=== PATIENT | male | born 1960 | race Caucasian/White ===

== ENCOUNTER 2017-03-21 18:08 | Emergency (ER) | payer BC ==
[2017-03-21 18:17] VITALS: BP 137/97
[2017-03-21] MEDS ORDERED: Tetan/Diph/Pertus SYR(Tdap)* 0.5 ML SYR(BOOSTRIX) use SYR IM ONE (18:37)
--- NOTE | 2017-03-21 20:10 | UC ---
Skin Complaint HPI - HPI Summary HPI Summary: Patient states he is here for a tetanus shot. Contaminated nail on a board fell directly atop his right foot occurred last night. He notes to some tenderness, but denies redness, swelling or drainage from the area. There is a small lesion present, but no other pain or findings. He is otherwise healthy. Last tetanus unknown. UTD on other immunizations. - History of Current Complaint Hx Obtained From: Patient Onset/Duration: Sudden Onset Skin Exposure Onset/Duration: Hours Ago Timing: Constant Onset Severity: Moderate Current Severity: Moderate Pain Intensity: 0 Pain Scale Used: 0-10 Numeric <Edel Loza - Last Filed: 03/21/17 20:06> <Estephanie Amor - Last Filed: 03/21/17 21:48> - History of Current Complaint Chief Complaint: UCWounds Time Seen by Provider: 03/21/17 19:13 Stated Complaint: NAIL IN FOOT - Allergy/Home Medications Allergies/Adverse Reactions: Allergies Allergy/AdvReac Type Severity Reaction Status Date / Time No Known Allergies Allergy Verified 01/30/16 08:57 Review of Systems Constitutional: Negative Skin: Other - lesion anterior right foot Respiratory: Negative Cardiovascular: Negative Motor: Negative Neurovascular: Negative Neurological: Negative Psychological: Negative Is Patient Immunocompromised?: No All Other Systems Reviewed And Are Negative: Yes <Edel Loza - Last Filed: 03/21/17 20:06> PMH/Surg Hx/FS Hx/Imm Hx Previously Healthy: Yes - Surgical History Surgical History: Yes Surgery Procedure, Year, and Place: Appendectomy @ 14 years old - Family History Known Family History: Positive: Other - no fhx arthritis Negative: Cardiac Disease, Hypertension, Diabetes - Social History Occupation: Employed Full-time Lives: With Family Alcohol Use: Daily Substance Use Type: None Smoking Status (MU): Never Smoked Tobacco - Immunization History Most Recent Influenza Vaccination: unknown <Edel Loza - Last Filed: 03/21/17 20:06> Physical Exam Triage Information Reviewed: Yes Appearance: Well-Appearing, Well-Nourished Vital Signs: Initial Vital Signs Temp 98.5 F 03/21/17 18:12 Pulse 55 03/21/17 18:12 Resp 18 03/21/17 18:12 BP 137/97 03/21/17 18:12 Pulse Ox 99 03/21/17 18:12 Vital Signs Reviewed: Yes Eye Exam: Normal Eyes: Positive: Conjunctiva Clear Neck exam: Normal Neck: Positive: Supple, No Lymphadenopathy Respiratory Exam: Normal Respiratory: Positive: Chest non-tender Cardiovascular Exam: Normal Cardiovascular: Positive: RRR Musculoskeletal Exam: Normal Musculoskeletal: Positive: Strength Intact Neurological Exam: Normal Neurological: Positive: Alert Psychological: Positive: Normal Response To Family, Age Appropriate Behavior Skin: Positive: Other - lesion - right anterior foot - measures .1cm <Edel Loza - Last Filed: 03/21/17 20:06> Vital Signs: Initial Vital Signs Temp 98.5 F 03/21/17 18:12 Pulse 55 03/21/17 18:12 Resp 18 03/21/17 18:12 BP 137/97 03/21/17 18:12 Pulse Ox 99 03/21/17 18:12 <Estephanie Amor - Last Filed: 03/21/17 21:48> Course/Dx - Course Course Of Treatment: Tetanus updated. Wound checked and OK. No signs of infection. Patient is given care instructions and is OK with discharge. - Differential Diagnoses - Skin Complaint Differential Diagnoses: Other - cellulitis, trauma - Diagnoses Provider Diagnoses: Tetanus Booster <Edel Loza - Last Filed: 03/21/17 20:06> Discharge <Edel Loza - Last Filed: 03/21/17 20:06> <Estephanie Amor - Last Filed: 03/21/17 21:48> - Discharge Plan Condition: Stable Disposition: HOME Patient Education Materials: Diphtheria/Pertussis/Tetanus Vaccine (By injection ) Referrals: No Primary Care Phys,NOPCP [Primary Care Provider] - Additional Instructions: If you develop any signs of infection as discussed - return to the Attestation Statement User Type: Provider - I was available for consult. This patient was seen by the LEXIE. The patient was not presented to, seen by, or examined by me. -Bonita <Estephanie Amor - Last Filed: 03/21/17 21:48>
== END 2017-03-21 19:34 | disposition home or self-care (01) ==
LOC: UCEAST 18:08
DX: Z23 Encounter for immunization (principal)
CPT/HCPCS: 90471; 90715; 99211; G0463

== ENCOUNTER 2018-02-03 17:47 | Emergency (ER) | payer BC ==
[2018-02-03 21:05] LABS: ABS Basophils 0 10^3/ul (0-0.2); ABS Eosinophils 0.3 10^3/ul (0-0.6); ABS Lymphocytes 1.6 10^3/ul (1.0-4.8); ABS Monocytes 0.8 10^3/ul (0-0.8); ABS Neutrophils 5.6 10^3/ul (1.5-7.7); ABS Nucleated RBC 0 10^3/ul; Eosinophil % 3.3 % (0-6); Hematocrit 40 % (42-52); Hemoglobin 13.3 g/dl (14.0-18.0); Lymphocyte % 19.7 % (25-47); Mean Corpuscular HGB Conc 33 g/dl (31-36); Mean Corpuscular Hemoglobin 31 pg (27-31); Mean Corpuscular Volume 92 fL (80-94); Mean Platelet Volume 7.2 um3 (7.4-10.4); Nucleated Red Blood Cells % 0.2; Platelet Count 260 10^3/ul (150-450); Red Blood Count 4.35 10^6/ul (4.00-5.40); Red Cell Distribution Width 14 % (10.5-15); White Blood Count 8.3 10^3/ul (3.5-10.8)
[2018-02-03] MEDS ORDERED: Ketorolac INJ* 30 MG/ML 1 ML VIAL IM ONE (21:12)
[2018-02-03 21:27] LABS: EGFR Non-African American 81.3 (>60)
[2018-02-03 21:34] LABS: Urine Appearance Clear; Urine Blood Negative (Negative); Urine Color Yellow; Urine Ketones Negative (Negative); Urine Protein Negative (Negative); Urine Specific Gravity 1.019 (1.010-1.030); Urine Urobilinogen Negative (Negative)
--- NOTE | 2018-02-03 22:17 | RAD ---
EXAM: CT Abdomen and Pelvis Without Intravenous Contrast CLINICAL HISTORY: 57 years old, male; Pain; Abdominal pain; Prior surgery; Surgery type: Appy as child; Additional info: Lower abd pain, back pain, hematuria TECHNIQUE: Axial computed tomography images of the abdomen and pelvis without intravenous contrast. Coronal and sagittal reformatted images were created and reviewed. COMPARISON: No relevant prior studies available. FINDINGS: Lung bases: Dependent atelectasis bilaterally. ABDOMEN: Liver: Unremarkable. Gallbladder and bile ducts: Unremarkable. No calcified stones. No ductal dilation. Pancreas: Unremarkable. No ductal dilation. Spleen: Unremarkable. No splenomegaly. Adrenals: Unremarkable. No mass. Kidneys and ureters: Bilateral renal cysts, largest on the right measuring approximately 3 cm. No obstructing stones. Stomach and bowel: Colonic diverticula with mesenteric fat stranding adjacent to the sigmoid colon. No obstruction. PELVIS: Appendix: Appendix surgically absent by history. Bladder: Diffuse thickening of the bladder wall can be seen with nondistention, chronic infection, and outflow obstruction. No stones. Reproductive: Unremarkable as visualized. ABDOMEN and PELVIS: Intraperitoneal space: Unremarkable. No free air. No significant fluid collection. Bones/joints: L1 compression fracture, likely chronic given the absence of paraspinous hemorrhage. No dislocation. Soft tissues: Fat containing left inguinal hernia. Vasculature: Atherosclerotic calcification. No abdominal aortic aneurysm. Lymph nodes: Unremarkable. No enlarged lymph nodes. IMPRESSION: 1. Sigmoid colon diverticulitis without abscess or perforation. R0
[2018-02-03] MEDS ORDERED: Ciprofloxacin TAB* 500 MG PO ONE (22:18)
[2018-02-03] MEDS ORDERED: metroNIDAZOLE TAB* 250 MG PO ONE (22:18)
--- NOTE | 2018-02-03 22:27 | ED ---
GI/ HPI - HPI Summary HPI Summary: 57-year-old male presents with fever on . He states he developed abdominal pain shortly after. States it radiates to his back. Has had abdominal pain for the past 4 days. He had hematuria. He also admits to hematuria. No urgency or frequency. No testicular pain. Never had this pain before. No diarrhea or constipation. No medical conditions. He states pain is worse when he is sitting. He hasn't taking anything for his pain. he admits to nausea and vomiting. - History of Current Complaint Chief Complaint: EDAbdPain Time Seen by Provider: 02/03/18 20:53 Stated Complaint: LOWER ABD PAIN Pain Intensity: 5 - Allergy/Home Medications Allergies/Adverse Reactions: Allergies Allergy/AdvReac Type Severity Reaction Status Date / Time No Known Allergies Allergy Verified 02/03/18 17:58 PMH/Surg Hx/FS Hx/Imm Hx Endocrine/Hematology History: Denies: Hx Diabetes Cardiovascular History: Denies: Hx Hypertension, Hx Pacemaker/ICD History: Denies: Hx Renal Disease Sensory History: Denies: Hx Hearing Aid Psychiatric History: Denies: Hx Panic Disorder - Surgical History Surgery Procedure, Year, and Place: Appendectomy @ 14 years old Infectious Disease History: No Infectious Disease History: Denies: Traveled Outside the [place] in Last 30 Days - Family History Known Family History: Positive: Other - no fhx arthritis Negative: Cardiac Disease, Hypertension, Diabetes - Social History Alcohol Use: Daily Substance Use Type: Reports: None Smoking Status (MU): Never Smoked Tobacco Review of Systems Negative: Fever Negative: Chest Pain Negative: Shortness Of Breath Positive: Abdominal Pain, Vomiting, Nausea. Negative: Diarrhea All Other Systems Reviewed And Are Negative: Yes Physical Exam Triage Information Reviewed: Yes Vital Signs On Initial Exam: Initial Vitals Temp Pulse Resp BP Pulse Ox 98.1 F 75 16 146/84 97 02/03/18 17:53 02/03/18 17:53 02/03/18 17:53 02/03/18 17:53 02/03/18 17:53 Vital Signs Reviewed: Yes Appearance: Positive: Well-Appearing Skin: Positive: Warm, Dry Head/Face: Positive: Normal Head/Face Inspection Eyes: Positive: Normal, Conjunctiva Clear ENT: Positive: Pharynx normal Respiratory/Lung Sounds: Positive: Clear to Auscultation, Breath Sounds Present Cardiovascular: Positive: Normal, RRR Abdomen Description: Positive: Soft, Other: - tenderness in lower abd. Negative : CVA Tenderness (R), CVA Tenderness (L) Bowel Sounds: Positive: Present Musculoskeletal: Positive: Normal Neurological: Positive: Normal Psychiatric: Positive: Normal Diagnostics - Vital Signs Vital Signs Temp Pulse Resp BP Pulse Ox 02/03/18 20:00 97.7 F 63 136/84 100 02/03/18 17:53 98.1 F 75 16 146/84 97 - Laboratory Lab Results: Lab Results 02/03/18 02/03/18 02/03/18 Range/Units 20:54 20:54 20:55 WBC 8.3 (3.5-10.8) 10^3/ul RBC 4.35 (4.00-5.40) 10^6/ul Hgb 13.3 L (14.0-18.0) g/dl Hct 40 L (42-52) % MCV 92 (80-94) fL MCH 31 (27-31) pg MCHC 33 (31-36) g/dl RDW 14 (10.5-15) % Plt Count 260 (150-450) 10^3/ul MPV 7.2 L (7.4-10.4) um3 Neut % (Auto) 67.3 (38-83) % Lymph % (Auto) 19.7 L (25-47) % [place] % (Auto) 9.2 H (0-7) % Eos % (Auto) 3.3 (0-6) % Baso % (Auto) 0.5 (0-2) % Absolute Neuts (auto) 5.6 (1.5-7.7) 10^3/ul Absolute Lymphs (auto) 1.6 (1.0-4.8) 10^3/ul Absolute Monos (auto) 0.8 (0-0.8) 10^3/ul Absolute Eos (auto) 0.3 (0-0.6) 10^3/ul Absolute Basos (auto) 0 (0-0.2) 10^3/ul Absolute Nucleated RBC 0 10^3/ul Nucleated RBC % 0.2 Sodium 138 (135-145) mmol/L Potassium 3.7 (3.5-5.0) mmol/L Chloride 101 (101-111) mmol/L Carbon Dioxide 28 (22-32) mmol/L Anion Gap 9 (2-11) mmol/L BUN 14 (6-24) mg/dL Creatinine 0.96 (0.67-1.17) mg/dL Est GFR ( Amer) 98.4 (>60) Est GFR (Non-Af Amer) 81.3 (>60) BUN/Creatinine Ratio 14.6 (8-20) Glucose 118 H (70-100) mg/dL Lactic Acid 1.1 (0.5-2.0) mmol/L Calcium 8.8 (8.6-10.3) mg/dL Total Bilirubin 0.50 (0.2-1.0) mg/dL AST 48 H (13-39) U/L ALT 75 H (7-52) U/L Alkaline Phosphatase 124 H (34-104) U/L C-Reactive Protein 168.39 H (<8.01) mg/L Total Protein 7.6 (6.4-8.9) g/dL Albumin 3.9 (3.2-5.2) g/dL Globulin 3.7 (2-4) g/dL Albumin/Globulin Ratio 1.1 (1-3) Lipase 16 (11.0-82.0) U/L Urine Color Urine Appearance Urine pH (5-9) Ur Specific [place] (1.010-1.030) Urine Protein (Negative) Urine Ketones (Negative) Urine Blood (Negative) Urine Nitrate (Negative) Urine Bilirubin (Negative) Urine Urobilinogen (Negative) Ur Leukocyte Esterase (Negative) Urine Glucose (Negative) Urine Ascorbic Acid (Negative) 02/03/18 Range/Units 21:23 WBC (3.5-10.8) 10^3/ul RBC (4.00-5.40) 10^6/ul Hgb (14.0-18.0) g/dl Hct (42-52) % MCV (80-94) fL MCH (27-31) pg MCHC (31-36) g/dl RDW (10.5-15) % Plt Count (150-450) 10^3/ul MPV (7.4-10.4) um3 Neut % (Auto) (38-83) % Lymph % (Auto) (25-47) % [place] % (Auto) (0-7) % Eos % (Auto) (0-6) % Baso % (Auto) (0-2) % Absolute Neuts (auto) (1.5-7.7) 10^3/ul Absolute Lymphs (auto) (1.0-4.8) 10^3/ul Absolute Monos (auto) (0-0.8) 10^3/ul Absolute Eos (auto) (0-0.6) 10^3/ul Absolute Basos (auto) (0-0.2) 10^3/ul Absolute Nucleated RBC 10^3/ul Nucleated RBC % Sodium (135-145) mmol/L Potassium (3.5-5.0) mmol/L Chloride (101-111) mmol/L Carbon Dioxide (22-32) mmol/L Anion Gap (2-11) mmol/L BUN (6-24) mg/dL Creatinine (0.67-1.17) mg/dL Est GFR ( Amer) (>60) Est GFR (Non-Af Amer) (>60) BUN/Creatinine Ratio (8-20) Glucose (70-100) mg/dL Lactic Acid (0.5-2.0) mmol/L Calcium (8.6-10.3) mg/dL Total Bilirubin (0.2-1.0) mg/dL AST (13-39) U/L ALT (7-52) U/L Alkaline Phosphatase (34-104) U/L C-Reactive Protein (<8.01) mg/L Total Protein (6.4-8.9) g/dL Albumin (3.2-5.2) g/dL Globulin (2-4) g/dL Albumin/Globulin Ratio (1-3) Lipase (11.0-82.0) U/L Urine Color Yellow Urine Appearance Clear Urine pH 5.0 (5-9) Ur Specific [place] 1.019 (1.010-1.030) Urine Protein Negative (Negative) Urine Ketones Negative (Negative) Urine Blood Negative (Negative) Urine Nitrate Negative (Negative) Urine Bilirubin Negative (Negative) Urine Urobilinogen Negative (Negative) Ur Leukocyte Esterase Negative (Negative) Urine Glucose Negative (Negative) Urine Ascorbic Acid * A (Negative) Result Diagrams: 02/03/18 20:55 02/03/18 20:54 Lab Statement: Any lab studies that have been ordered have been reviewed, and results considered in the medical decision making process. - CT abd CT Interpretation: Positive (See Comments) - 1. Sigmoid colon diverticulitis without abscess or perforation. CT Interpretation Completed By: Radiologist LALA Course/Dx - Course Course Of Treatment: 57-year-old male presents with fever on . He states he developed abdominal pain shortly after. States it radiates to his back. Has had abdominal pain for the past 4 days. He had hematuria. He also admits to hematuria. No urgency or frequency. No testicular pain. Never had this pain before. No diarrhea or constipation. No medical conditions. He states pain is worse when he is sitting. He hasn't taking anything for his pain. On exam tenderness lower abdomen. Negative CVA tenderness. wbcnormal. CRP elevated. CT shows diverticulitis. We'll treat with Cipro and Flagyl. Patient understands agrees with plan. - Diagnoses Differential Diagnoses - Male: Diverticulosis, Gastroenteritis (Viral), Ureteral Calculi Provider Diagnoses: Diverticulitis Discharge - Sign-Out/Discharge Documenting (check all that apply): Patient Departure - Discharge Plan Condition: Good Disposition: HOME Prescriptions: Ciprofloxacin TAB* [Cipro 500 MG TAB*] 500 mg PO BID #19 tab metroNIDAZOLE [Flagyl 500 MG TAB] 500 mg PO TID #29 tab Patient Education Materials: Diverticulitis (ED) Referrals: [facility] [Outside] Additional Instructions: Take ciprofloxacin twice a day for 10 days, first dose given in ED Take Flagyl every 8 hours for 10 days, first dose given in ED Follow clear liquid diet until symptoms improve Return to ED if develop any new or worsening symptoms - Billing Disposition and Condition Condition: GOOD Disposition: Home
[2018-02-03 22:37] VITALS: BP 141/75
== END 2018-02-03 22:36 | disposition home or self-care (01) ==
LOC: ED 17:47
DX: K57.32 Diverticulitis of large intestine without perforation or abscess without bleeding (principal); K40.90 Unilateral inguinal hernia, without obstruction or gangrene, not specified as recurrent
CPT/HCPCS: 36415; 74176; 80053; 81003; 83605; 83690; 85025; 86140; 96372; 99283; A9270-GY; J1885